=== PATIENT | female | born 2000 | race African-American/Black ===

== ENCOUNTER 2022-04-10 19:42 | Emergency (ER) | payer SELFPAY ==
[2022-04-10 19:51] VITALS: BP 140/77; PULSE 102; RESP 18; TEMP 98.1; BMI 28.7
[2022-04-10] MEDS ORDERED: LACTATED RINGERS SOLUTION 1000 ML INFUS.BAG IV ONE (23:03)
[2022-04-10] MEDS ORDERED: ONDANSETRON 4 MG/2 ML VIAL IVPUSH ONE (23:04)
[2022-04-10] MEDS ORDERED: ONDANSETRON 4 MG/2 ML VIAL ONE (23:18)
[2022-04-11 00:06] LABS: BASO % 0.5 % (0-2.0); EOS % 2.8 % (0-4.5); HEMATOCRIT 35.9 % (32.4-45.2); HEMOGLOBIN 12.1 GM/dL (10.7-15.3); LYMPH % 23.8 % (8-40); MCH 28.9 pg (25.7-33.7); MCHC 33.6 g/dl (32.0-36.0); MEAN CELL VOLUME 85.8 fl (80-96); MEAN PLT VOLUME 9.5 fl (7.5-11.1); MONO % 12.9 % (3.8-10.2); PLATELET COUNT 256 10^3/uL (134-434); RBC 4.19 M/mm3 (3.60-5.2); RDW 14.3 % (11.6-15.6); WHITE BLOOD COUNT 5.6 K/mm3 (4.0-10.0)
[2022-04-11 00:24] LABS: CALCIUM 9.2 mg/dL (8.5-10.1)
[2022-04-11 00:25] LABS: ALBUMIN 3.6 g/dl (3.4-5.0); BLOOD UREA NITROGEN 7.3 mg/dL (7-18)
[2022-04-11 00:28] LABS: CREATININE 0.6 mg/dL (0.55-1.3)
[2022-04-11 00:29] LABS: BILIRUBIN,TOTAL 0.3 mg/dL (0.2-1); TOT PROT 7.8 g/dl (6.4-8.2)
[2022-04-11 01:27] LABS: EPI CELLS >36 /uL (0-25.1); HYALINE CASTS 7 /uL (0-3.1); URINE APPEARANCE CLOUDY; URINE BACTERIA 1642 /uL (0-1359); URINE BILIRUBIN NEGATIVE (NEGATIVE); URINE COLOR YELLOW; URINE GLUCOSE (UA) NEGATIVE (NEGATIVE); URINE KETONE 3+ (NEGATIVE); URINE LEUK ESTERASE 2+ (NEGATIVE); URINE NITRITE NEGATIVE (NEGATIVE); URINE PROTEIN NEGATIVE (NEGATIVE); URINE RBC 5 /uL (0-23.9); URINE WBC 286 /uL (0-25.8)
== END 2022-04-11 01:48 | disposition home or self-care (01) ==
LOC: JER 19:42
PROC: 3E033GC Introduction of Other Therapeutic Substance into Peripheral Vein, Percutaneous Approach (ICD-10-PCS; principal; 2022-04-10)
DX: O23.11 Infections of bladder in pregnancy, first trimester (principal); O21.9 Vomiting of pregnancy, unspecified; Z3A.01 Less than 8 weeks gestation of pregnancy
CPT/HCPCS: 36415; 76801-TC; 80053; 81003; 83690; 84702; 84703; 85025; 87086; 99284-25

== ENCOUNTER 2022-05-08 13:03 | Emergency (ER) | payer OTHER ==
[2022-05-08 13:48] VITALS: RESP 18; TEMP 97.8; BMI 28.8
[2022-05-08] MEDS ORDERED: SODIUM CHLORIDE 1,000 ML IV STA (15:04)
[2022-05-08 15:49] LABS: BASO % 0.6 % (0-2.0); HEMOGLOBIN 11.7 GM/dL (10.7-15.3); LYMPH % 26.4 % (8-40); MCH 28.8 pg (25.7-33.7); MCHC 33.5 g/dl (32.0-36.0); MEAN CELL VOLUME 86.1 fl (80-96); MEAN PLT VOLUME 9.2 fl (7.5-11.1); PLATELET COUNT 260 10^3/uL (134-434); RBC 4.07 M/mm3 (3.60-5.2); RDW 13.8 % (11.6-15.6); WHITE BLOOD COUNT 7.1 K/mm3 (4.0-10.0)
[2022-05-08 16:00] LABS: EPI CELLS >36 /uL (0-25.1); HYALINE CASTS 8 /uL (0-3.1); PH,URINE 5.5 (5.0-8.0); URINE APPEARANCE TURBID; URINE BACTERIA 5767 /uL (0-1359); URINE BILIRUBIN NEGATIVE (NEGATIVE); URINE COLOR DK YELLOW; URINE GLUCOSE (UA) NEGATIVE (NEGATIVE); URINE KETONE 1+ (NEGATIVE); URINE LEUK ESTERASE 2+ (NEGATIVE); URINE NITRITE NEGATIVE (NEGATIVE); URINE PROTEIN 1+ (NEGATIVE); URINE RBC 20 /uL (0-23.9); URINE WBC 132 /uL (0-25.8)
[2022-05-08 16:09] LABS: ALBUMIN 3.7 g/dl (3.4-5.0); BLOOD UREA NITROGEN 6.9 mg/dL (7-18); CALCIUM 9.8 mg/dL (8.5-10.1); MAGNESIUM 1.8 mg/dL (1.8-2.4)
[2022-05-08 16:12] LABS: CREATININE 0.6 mg/dL (0.55-1.3)
[2022-05-08 16:14] LABS: BILIRUBIN,TOTAL 0.2 mg/dL (0.2-1); TOT PROT 7.5 g/dl (6.4-8.2)
[2022-05-08 18:53] VITALS: BP 96/59; PULSE 87
== END 2022-05-08 18:30 | disposition home or self-care (01) ==
LOC: JER 13:03
DX: O21.9 Vomiting of pregnancy, unspecified (principal); Z3A.15 15 weeks gestation of pregnancy
CPT/HCPCS: 36415; 80053; 81003; 83735; 85025; 87086; 99283-25; C9803-CS; U0003; U0005

== ENCOUNTER 2022-05-16 14:53 | Emergency (ER) | payer OTHER ==
[2022-05-16 15:39] VITALS: BP 112/64; PULSE 89; RESP 18; TEMP 98.1; BMI 29.0
[2022-05-16 19:48] LABS: HEMATOCRIT 33.7 % (32.4-45.2); HEMOGLOBIN 10.9 GM/dL (10.7-15.3); MCHC 32.4 g/dl (32.0-36.0); MEAN CELL VOLUME 86.6 fl (80-96); MEAN PLT VOLUME 9.9 fl (7.5-11.1); PLATELET COUNT 274 10^3/uL (134-434); RBC 3.89 M/mm3 (3.60-5.2); RDW 13.5 % (11.6-15.6); WHITE BLOOD COUNT 6.7 K/mm3 (4.0-10.0)
[2022-05-16 20:09] LABS: ALBUMIN 3.1 g/dl (3.4-5.0); BLOOD UREA NITROGEN 7.6 mg/dL (7-18)
[2022-05-16 20:12] LABS: CREATININE 0.6 mg/dL (0.55-1.3)
[2022-05-16 20:14] LABS: BILIRUBIN,TOTAL 0.1 mg/dL (0.2-1); TOT PROT 6.7 g/dl (6.4-8.2)
[2022-05-16 20:30] LABS: EPI CELLS >36 /uL (0-25.1); HYALINE CASTS 2 /uL (0-3.1); PH,URINE 7.5 (5.0-8.0); URINE APPEARANCE TURBID; URINE BACTERIA 3913 /uL (0-1359); URINE BILIRUBIN NEGATIVE (NEGATIVE); URINE COLOR YELLOW; URINE GLUCOSE (UA) NEGATIVE (NEGATIVE); URINE KETONE 1+ (NEGATIVE); URINE LEUK ESTERASE 1+ (NEGATIVE); URINE NITRITE NEGATIVE (NEGATIVE); URINE PROTEIN TRACE (NEGATIVE); URINE RBC 7 /uL (0-23.9); URINE WBC 47 /uL (0-25.8)
== END 2022-05-16 21:11 | disposition home or self-care (01) ==
LOC: JER 14:53
DX: K92.0 Hematemesis (principal)
CPT/HCPCS: 36415; 80053; 81003; 85027; 87086; 99283-25

== ENCOUNTER 2022-05-23 09:55 | Emergency (ER) | payer OTHER ==
[2022-05-23 10:20] VITALS: BP 104/67; PULSE 67; RESP 18; TEMP 98.1; BMI 28.7
[2022-05-23] MEDS ORDERED: ACETAMINOPHEN 500 MG TABLET (FP) PO ONE (10:40)
[2022-05-23] MEDS ORDERED: LIDOCAINE 5% TOPICAL PATCH TP ONE (10:50)
[2022-05-23] MEDS ORDERED: ACETAMINOPHEN 160 MG/5 ML 473ML BULK BOTTLE ONE (10:50)
[2022-05-23] MEDS ORDERED: ACETAMINOPHEN 500 MG TABLET (FP) ONE (10:53)
[2022-05-23] MEDS ORDERED: ACETAMINOPHEN 325 MG TABLET (FP) ONE (10:53)
[2022-05-23] MEDS ORDERED: LIDOCAINE PATCH REMOVAL MC SCH (22:00)
== END 2022-05-23 13:13 | disposition home or self-care (01) ==
LOC: JERFT 09:55
DX: O9A.212 Injury, poisoning and certain other consequences of external causes complicating pregnancy, second trimester (principal); M54.50 Low back pain, unspecified; V49.40XA Driver injured in collision with unspecified motor vehicles in traffic accident, initial encounter; Z3A.17 17 weeks gestation of pregnancy
CPT/HCPCS: 76815-TC; 99283-25

== ENCOUNTER 2023-02-25 19:54 | Emergency (ER) | payer OTHER ==
[2023-02-25 20:04] VITALS: BP 100/70; PULSE 86; RESP 18; TEMP 98.9; BMI 28.0
[2023-02-25] MEDS ORDERED: ACETAMINOPHEN 1000 MG/100 ML BAG IVPB ONE (20:24)
[2023-02-25] MEDS ORDERED: SODIUM CHLORIDE 0.9% 500 ML INFUS.BAG IV ONE (20:24)
[2023-02-25] MEDS ORDERED: METOCLOPRAMIDE HCL INJECTION 10 MG/2 ML VIAL IVPUSH ONE (20:24)
[2023-02-25] MEDS ORDERED: KETOROLAC TROMETHAMINE 30 MG/1 ML VIAL IVPUSH ONE (20:39)
[2023-02-25 21:02] LABS: BASO % 0.8 % (0-2.0); EOS % 0.9 % (0-4.5); HEMATOCRIT 33.9 % (32.4-45.2); HEMOGLOBIN 10.7 GM/dL (10.7-15.3); LYMPH % 38.2 % (8-40); MCH 25.3 pg (25.7-33.7); MCHC 31.6 g/dl (32.0-36.0); MEAN CELL VOLUME 80.2 fl (80-96); MEAN PLT VOLUME 9.2 fl (7.5-11.1); MONO % 11.7 % (3.8-10.2); NEUT % 48.4 % (42.8-82.8); PLATELET COUNT 310 10^3/uL (134-434); RBC 4.22 M/mm3 (3.60-5.2); WHITE BLOOD COUNT 6.7 K/mm3 (4.0-10.0)
[2023-02-25] MEDS ORDERED: ACETAMINOPHEN INJECTION 100 ML IVPB ONE (21:16)
[2023-02-25] MEDS ORDERED: KETOROLAC TROMETHAMINE 30 MG/1 ML VIAL ONE (21:16)
[2023-02-25] MEDS ORDERED: METOCLOPRAMIDE HCL INJECTION 10 MG/2 ML VIAL ONE (21:16)
[2023-02-25 21:20] LABS: POTASSIUM 4.1 mmol/L (3.5-5.1)
[2023-02-25 21:21] LABS: CALCIUM 9.7 mg/dL (8.5-10.1)
[2023-02-25 21:25] LABS: CREATININE 0.8 mg/dL (0.55-1.3)
== END 2023-02-25 22:29 | disposition home or self-care (01) ==
LOC: JER 19:54
PROC: 3E033NZ Introduction of Analgesics, Hypnotics, Sedatives into Peripheral Vein, Percutaneous Approach (ICD-10-PCS; principal; 2023-02-25)
PROC: 3E033GC Introduction of Other Therapeutic Substance into Peripheral Vein, Percutaneous Approach (ICD-10-PCS; 2023-02-25)
PROC: 3E033GC Introduction of Other Therapeutic Substance into Peripheral Vein, Percutaneous Approach (ICD-10-PCS; 2023-02-25)
DX: G43.101 Migraine with aura, not intractable, with status migrainosus (principal); Z33.1 Pregnant state, incidental
CPT/HCPCS: 36415; 70450-TC; 80048; 84703; 85025; 99284-25

== ENCOUNTER 2023-06-13 13:09 | Emergency (ER) | payer OTHER ==
[2023-06-13 13:31] VITALS: BP 124/76; PULSE 82; RESP 18; TEMP 97.1; BMI 28.7
[2023-06-13] MEDS ORDERED: KETOROLAC TROMETHAMINE 30 MG/1 ML VIAL IVPUSH ONE (15:33)
[2023-06-13] MEDS ORDERED: ONDANSETRON 4 MG/2 ML VIAL IVPUSH ONE (15:33)
[2023-06-13] MEDS ORDERED: SODIUM CHLORIDE 0.9% 500 ML INFUS.BAG IV ONE (15:34)
[2023-06-13] MEDS ORDERED: ONDANSETRON 4 MG/2 ML VIAL ONE (15:49)
[2023-06-13] MEDS ORDERED: KETOROLAC TROMETHAMINE 30 MG/1 ML VIAL ONE (15:49)
[2023-06-13 16:05] LABS: BASO % 0.4 % (0-2.0); EOS % 0.1 % (0-4.5); HEMOGLOBIN 10.8 GM/dL (10.7-15.3); LYMPH % 12.6 % (8-40); MCH 25.6 pg (25.7-33.7); MCHC 31.8 g/dl (32.0-36.0); MEAN CELL VOLUME 80.5 fl (80-96); MEAN PLT VOLUME 8.7 fl (7.5-11.1); NEUT % 83.9 % (42.8-82.8); PLATELET COUNT 351 10^3/uL (134-434); RBC 4.23 M/mm3 (3.60-5.2)
[2023-06-13 16:12] LABS: EPI CELLS >36 /uL (0-25.1); HYALINE CASTS 9 /uL (0-3.1); PH,URINE 5.5 (5.0-8.0); URINE APPEARANCE CLOUDY; URINE BACTERIA 1847 /uL (0-1359); URINE BILIRUBIN NEGATIVE (NEGATIVE); URINE COLOR YELLOW; URINE GLUCOSE (UA) NEGATIVE (NEGATIVE); URINE KETONE TRACE (NEGATIVE); URINE LEUK ESTERASE NEGATIVE (NEGATIVE); URINE NITRITE NEGATIVE (NEGATIVE); URINE PROTEIN 2+ (NEGATIVE)
[2023-06-13 16:28] LABS: POTASSIUM 4.2 mmol/L (3.5-5.1)
[2023-06-13 16:30] LABS: BLOOD UREA NITROGEN 10.4 mg/dL (7-18); CALCIUM 9.7 mg/dL (8.5-10.1)
[2023-06-13 16:33] LABS: CREATININE 0.8 mg/dL (0.55-1.3)
[2023-06-13 16:35] LABS: BILIRUBIN,TOTAL 0.3 mg/dL (0.2-1)
[2023-06-13 17:51] LABS: URINE RBC 19.9 /uL (0-23.9); URINE WBC 88.6 /uL (0-25.8)
== END 2023-06-13 17:41 | disposition home or self-care (01) ==
LOC: JER 13:09
PROC: 3E033NZ Introduction of Analgesics, Hypnotics, Sedatives into Peripheral Vein, Percutaneous Approach (ICD-10-PCS; principal; 2023-06-13)
PROC: 3E033GC Introduction of Other Therapeutic Substance into Peripheral Vein, Percutaneous Approach (ICD-10-PCS; 2023-06-13)
DX: R10.11 Right upper quadrant pain (principal); R11.2 Nausea with vomiting, unspecified
CPT/HCPCS: 36415; 76705-TC; 80053; 81003; 83690; 85025; 87086; 99284-25

== ENCOUNTER 2023-06-17 04:44 | Emergency (ER) | payer OTHER ==
[2023-06-17 04:51] VITALS: TEMP 98.2; BMI 28.7
[2023-06-17] MEDS ORDERED: ONDANSETRON 4 MG/2 ML VIAL IVPUSH ONE (05:06)
[2023-06-17] MEDS ORDERED: FAMOTIDINE 20 MG/50 ML IVPB 20 MG/50 ML MG IVPB ONE ×3 (05:06→05:39)
[2023-06-17] MEDS ORDERED: SODIUM CHLORIDE 0.9% 500 ML INFUS.BAG IV ONE (05:06)
[2023-06-17] MEDS ORDERED: ONDANSETRON 4 MG/2 ML VIAL ONE (05:26)
[2023-06-17] MEDS ORDERED: MAG HYDROX/AL HYDROX/SIMETH 30 ML UNIT-DOSE CUP PO ONE (05:40)
[2023-06-17 05:54] LABS: BASO % 1.1 % (0-2.0); EOS % 1.5 % (0-4.5); HEMATOCRIT 32.8 % (32.4-45.2); HEMOGLOBIN 10.5 GM/dL (10.7-15.3); LYMPH % 26.4 % (8-40); MCHC 31.9 g/dl (32.0-36.0); MEAN CELL VOLUME 81.3 fl (80-96); MEAN PLT VOLUME 8.9 fl (7.5-11.1); MONO % 5.1 % (3.8-10.2); NEUT % 65.9 % (42.8-82.8); PLATELET COUNT 317 10^3/uL (134-434); RBC 4.03 M/mm3 (3.60-5.2)
[2023-06-17] MEDS ORDERED: MAG HYDROX/AL HYDROX/SIMETH 30 ML UNIT-DOSE CUP ONE (05:58)
[2023-06-17 06:14] LABS: CHLORIDE 105 mmol/L (98-107); POTASSIUM 3.7 mmol/L (3.5-5.1); SODIUM 138 mmol/L (136-145)
[2023-06-17 06:16] LABS: CALCIUM 9.2 mg/dL (8.5-10.1)
[2023-06-17 06:17] LABS: ALBUMIN 3.7 g/dl (3.4-5.0); ANION GAP 6 mmol/L (4-13); CO2 27 mmol/L (21-32); GLUCOSE,RANDOM 98 mg/dL (74-106); LIPASE 98 U/L (73-393)
[2023-06-17 06:20] LABS: CREATININE 0.9 mg/dL (0.55-1.3); SGOT/AST 12 U/L (15-37); SGPT/ALT 16 U/L (13-61)
[2023-06-17 06:22] LABS: TOT PROT 7.5 g/dl (6.4-8.2)
[2023-06-17 06:23] LABS: ALK PHOS 67 U/L (45-117)
[2023-06-17] MEDS ORDERED: KETOROLAC TROMETHAMINE 15 MG/ML VIAL IVPUSH ONE ×2 (06:37→12:07)
[2023-06-17] MEDS ORDERED: KETOROLAC TROMETHAMINE 15 MG/ML VIAL ONE ×2 (06:38→12:28)
[2023-06-17 06:51] LABS: BILIRUBIN,TOTAL 0.2 mg/dL (0.2-1)
[2023-06-17 08:50] LABS: URINE APPEARANCE CLEAR; URINE BILIRUBIN NEGATIVE (NEGATIVE); URINE COLOR YELLOW; URINE GLUCOSE (UA) NEGATIVE (NEGATIVE); URINE KETONE NEGATIVE (NEGATIVE); URINE LEUK ESTERASE NEGATIVE (NEGATIVE); URINE NITRITE NEGATIVE (NEGATIVE); URINE PROTEIN NEGATIVE (NEGATIVE); URINE UROBILINOGEN 0.2 mg/dL (0.2-1.0)
[2023-06-17 09:41] VITALS: RESP 16
[2023-06-17 13:42] VITALS: BP 108/71; PULSE 69
== END 2023-06-17 14:03 | disposition home or self-care (01) ==
LOC: JER 04:44
PROC: 3E033GC Introduction of Other Therapeutic Substance into Peripheral Vein, Percutaneous Approach (ICD-10-PCS; principal; 2023-06-17)
PROC: 3E033GC Introduction of Other Therapeutic Substance into Peripheral Vein, Percutaneous Approach (ICD-10-PCS; 2023-06-17)
PROC: 3E033GC Introduction of Other Therapeutic Substance into Peripheral Vein, Percutaneous Approach (ICD-10-PCS; 2023-06-17)
PROC: 3E033GC Introduction of Other Therapeutic Substance into Peripheral Vein, Percutaneous Approach (ICD-10-PCS; 2023-06-17)
PROC: 3E033NZ Introduction of Analgesics, Hypnotics, Sedatives into Peripheral Vein, Percutaneous Approach (ICD-10-PCS; 2023-06-17)
DX: R10.13 Epigastric pain (principal); R11.10 Vomiting, unspecified; K82.9 Disease of gallbladder, unspecified
CPT/HCPCS: 36415; 74177-TC; 80053; 81003; 83690; 84702; 85025; 87491; 87591; 93005; 93010; 99285-25

== ENCOUNTER 2023-09-01 20:01 | Emergency (ER) | payer OTHER ==
[2023-09-01 20:09] VITALS: BP 118/70; PULSE 79; RESP 19; TEMP 98.6; BMI 28.0
[2023-09-01] MEDS ORDERED: METOCLOPRAMIDE HCL INJECTION 10 MG/2 ML VIAL ONE (22:13)
[2023-09-01] MEDS ORDERED: KETOROLAC TROMETHAMINE 30 MG/1 ML VIAL ONE (22:13)
[2023-09-01] MEDS: KETOROLAC TROMETHAMINE 30 MG/1 ML VIAL IVPUSH ONE (22:30)
[2023-09-01] MEDS: SODIUM CHLORIDE 0.9% 500 ML INFUS.BAG IV ONE (22:30)
[2023-09-01] MEDS: METOCLOPRAMIDE HCL INJECTION 10 MG/2 ML VIAL IVPUSH ONE (22:30)
[2023-09-01 22:32] LABS: BASO % 1.2 % (0-2.0); HEMATOCRIT 34.1 % (32.4-45.2); HEMOGLOBIN 10.9 GM/dL (10.7-15.3); LYMPH % 51.1 % (8-40); MCH 25.1 pg (25.7-33.7); MEAN CELL VOLUME 78.5 fl (80-96); MEAN PLT VOLUME 8.3 fl (7.5-11.1); MONO % 7.2 % (3.8-10.2); NEUT % 38.5 % (42.8-82.8); PLATELET COUNT 361 10^3/uL (134-434); RBC 4.34 M/mm3 (3.60-5.2); RDW 18.8 % (11.6-15.6); WHITE BLOOD COUNT 6.1 K/mm3 (4.0-10.0)
[2023-09-01 23:10] LABS: CALCIUM 9.5 mg/dL (8.5-10.1)
[2023-09-01 23:11] LABS: ALBUMIN 3.8 g/dl (3.4-5.0)
[2023-09-01 23:14] LABS: CREATININE 0.7 mg/dL (0.55-1.3)
[2023-09-01 23:16] LABS: BILIRUBIN,TOTAL 0.3 mg/dL (0.2-1); TOT PROT 7.8 g/dl (6.4-8.2)
== END 2023-09-01 23:46 | disposition home or self-care (01) ==
LOC: JER 20:01
PROC: 3E033GC Introduction of Other Therapeutic Substance into Peripheral Vein, Percutaneous Approach (ICD-10-PCS; principal; 2023-09-01)
PROC: 3E033GC Introduction of Other Therapeutic Substance into Peripheral Vein, Percutaneous Approach (ICD-10-PCS; 2023-09-01)
PROC: 3E0333Z Introduction of Anti-inflammatory into Peripheral Vein, Percutaneous Approach (ICD-10-PCS; 2023-09-01)
DX: R51.9 Headache, unspecified (principal); H53.149 Visual discomfort, unspecified; R42 Dizziness and giddiness; R11.2 Nausea with vomiting, unspecified
CPT/HCPCS: 36415; 80053; 84703; 85025; 99284-25